=== PATIENT | female | born 1995 | race Caucasian/White ===

== ENCOUNTER 2016-08-04 09:04 | Emergency (ER) | payer OTHER ==
[2016-08-04 09:31] VITALS: BP 122/75
--- NOTE | 2016-08-04 10:05 | UC ---
Abdominal Pain Female HPI - HPI Summary HPI Summary: 2 weeks of burning in chest and stomach worse with food, some relief with TUMS-- no n/v/d no fever no ruq pain - History of Current Complaint Chief Complaint: UCGI Stated Complaint: HEARTBURN Time Seen by Provider: 08/04/16 09:59 Hx Obtained From: Patient Hx Last Menstrual Period: 08/02/16 ?: No Onset/Duration: Gradual Onset, Lasting Weeks - 2, Still Present Timing: Constant Severity Initially: Mild Severity Currently: None Pain Intensity: 0 Pain Scale Used: 0-10 Numeric Location: Epigastric Radiates: No Character: Burning Aggravating Factor(s): Food Alleviating Factor(s): Antacids Associated Signs and Symptoms: Positive: Negative Allergies/Adverse Reactions: Allergies Allergy/AdvReac Type Severity Reaction Status Date / Time No Known Allergies Allergy Verified 08/04/16 09:31 Home Medications: Home Medications Calcium Carbonate CHEW TAB* [Tums*] 500 mg PO BID 08/04/16 [History Confirmed ] PMH/Surg Hx/FS Hx/Imm Hx Previously Healthy: Yes - Surgical History Surgical History: Yes Surgery Procedure, Year, and Place: right foot sx - Family History Known Family History: Positive: None Family History: no cardio vascular gi issues in family lineage - Social History Occupation: Student Lives: With Family Alcohol Use: Occasionally Substance Use Type: None Smoking Status (MU): Never Smoked Tobacco Review of Systems Constitutional: Negative Skin: Negative Eyes: Negative ENT: Negative Respiratory: Negative Cardiovascular: Negative Gastrointestinal: Abdominal Pain Genitourinary: Negative Motor: Negative Neurovascular: Negative Musculoskeletal: Negative Neurological: Negative Psychological: Negative All Other Systems Reviewed And Are Negative: Yes Physical Exam Triage Information Reviewed: Yes Appearance: Well-Appearing, No Pain Distress, Well-Nourished Vital Signs: Initial Vital Signs Temp 98.1 F 08/04/16 09:25 Pulse 74 08/04/16 09:25 Resp 15 08/04/16 09:25 BP 122/75 08/04/16 09:25 Pulse Ox 100 08/04/16 09:25 Vital Signs Reviewed: Yes Eye Exam: Normal Eyes: Positive: Conjunctiva Clear ENT Exam: Normal ENT: Positive: Normal ENT inspection, Hearing grossly normal. Negative: Nasal congestion, Nasal drainage, Trismus, Muffled/hoarse voice Dental Exam: Normal Neck exam: Normal Neck: Positive: Supple, Nontender, No Lymphadenopathy Respiratory Exam: Normal Respiratory: Positive: Chest non-tender, Lungs clear, Normal breath sounds, No respiratory distress, No accessory muscle use Cardiovascular Exam: Normal Cardiovascular: Positive: RRR, No Murmur, Pulses Normal, Brisk Capillary Refill Abdominal Exam: Normal Abdomen Description: Positive: Nontender, No Organomegaly, Soft. Negative: Hepatomegaly, McBurney's Point Tenderness, Peritoneal Signs Bowel Sounds: Positive: Absent Musculoskeletal Exam: Normal Musculoskeletal: Positive: Strength Intact, ROM Intact, No Edema Neurological Exam: Normal Neurological: Positive: Alert, Muscle Tone Normal Psychological Exam: Normal Skin Exam: Normal Abd Pain Female Course/Dx - Course Course Of Treatment: prilosec, diet modification follow with pcp or return to here or [facility] as needed - Differential Dx/Diagnosis Differential Diagnosis: Gall Bladder Disease, Pancreatitis, Peptic Ulcer Disease Provider Diagnoses: GERD Discharge - Discharge Plan Condition: Stable Disposition: HOME Prescriptions: Omeprazole CAP* [Prilosec CAP* 20 MG] 20 mg PO BEDTIME #30 Patient Education Materials: Diet for Ulcers and Gastritis (ED), Gastroesophageal Reflux Disease (ED) Referrals: Non Staff,Doctor [Primary Care Provider] - Additional Instructions: Follow with your provider in your home town in 4-6 weeks or if symptoms worsen or fail to improve return to see us or your [facility]
== END 2016-08-04 10:14 | disposition home or self-care (01) ==
LOC: UCCORT 09:04
DX: K21.9 Gastro-esophageal reflux disease without esophagitis (principal)
CPT/HCPCS: 99202; G0463